=== PATIENT | female | born 1950 | race Caucasian/White ===

== ENCOUNTER 2024-05-15 18:44 | Emergency (ER) | payer OTHER ==
[2024-05-15 18:51] VITALS: RESP 18
[2024-05-15] MEDS: ACETAMINOPHEN TAB 500 MG TAB PO STA (20:33)
[2024-05-15] MEDS: LIDOCAINE 2%-EPI 1:100,000 20 ML VIAL SQ STA (20:34)
--- NOTE | 2024-05-15 20:58 | XR ---
EXAMINATION TYPE: XR wrist complete LT DATE OF EXAM: 05/15/2024 8:21 PM CLINICAL INDICATION:Female, 74 years old with history of s/p fall left wrist pain; [facility] COMPARISON: None TECHNIQUE: XR wrist complete LT; examined in the Frontal, navicular, lateral, and oblique. FINDINGS/IMPRESSION: * Subtle cortical irregularity along the distal radius articular surface. Consider further evaluatio n with CT for confirmation of nondisplaced fracture. * Multifocal degeneration changes of the joints of the wrist.
--- NOTE | 2024-05-15 21:04 | CT ---
EXAMINATION TYPE: CT brain cspine wo con CT DLP: 1338.1 mGycm, Automated exposure control for dose reduction was used. DATE OF EXAM: 05/15/2024 8:45 PM COMPARISON: None. CLINICAL INDICATION:Female, 74 years old with history of s/p fall hea dinjury; fall; laceration super ior to left eye TECHNIQUE: Brain: Multiple axial CT images of the brain were obtained without IV contrast. Cspine: Axial CT images from the skull base to the inferior aspect of T2 we obtained without intraven ous contrast. Coronal and sagittal reformatted images were also reviewed. . FINDINGS: Brain: Extra-axial spaces: No abnormal extra-axial fluid collections. Extra-axial partially calcified lesion likely representing a meningioma measuring 16 mm along the left parietal bone Ventricular system: Dilatation in proportion to cerebral atrophy. Cerebral parenchyma: Cerebral atrophy. No acute intraparenchymal hemorrhage or mass effect. The hutton -white junction is well differentiated. Scattered hypoattenuating areas are seen within the white mat ter. Cerebellum: Unremarkable. Mass effect: No evidence of midline shift. Intracranial vasculature: Atherosclerotic calcifications of the intracranial vessels. Soft tissues: Left periorbital region laceration with mild subcutaneous changes edema. Calvarium/osseous structures: No depressed skull fracture. Paranasal sinuses and mastoid air cells: Clear. Visualized orbits: Orbital contents are intact. Cervical spine: Fracture: None. Osseous structures: Multilevel degenerative disc disease changes with endplate spurring and disc oste ophyte complex's. Vertebral alignment: Straightening of the vertebral alignment. Spinal canal/Neural Foramina: No evidence of significant spinal canal narrowing. No evidence for sign ificant neural foraminal stenosis. Neck soft tissues: Prevertebral soft tissues are within normal limits. Other: The airway is patent. The lung apices are clear. IMPRESSION: 1. No acute intracranial process. 2. Left periorbital region laceration with mild subcutaneous changes edema. No evidence of fracture. 3. No evidence of cervical spine fracture. 4. Moderate multilevel degenerative disc disease. 5. Left lateral breast calcified extra-axial lesion favored represent a meningioma.
--- NOTE | 2024-05-15 22:44 | ED ---
Fall HPI - General Chief Complaint: Fall Stated Complaint: fall L side Time Seen by Provider: 05/15/24 19:16 Source: patient, RN notes reviewed Mode of arrival: ambulatory - History of Present Illness Initial Comments: 74-year-old female presenting to the ED with a chief complaint of fall. Patient reports that she missed a step causing her to fall forward. Patient reports she missed a step causing her to fall on the back porch. Fell forward and was able to catch herself with her left hand however notes that she did hit her head on the cement. There is no LOC. Denies blood thinner use. Now notes swelling of the left wrist and laceration above the left eye. Did note she did also land on her knee however denies injury of her knee. Has been ambulatory since. Patient reports her tetanus status is up-to-date. No preceding chest pain shortness of breath or dizziness prior to the fall. No other complaints at this time. - Related Data Allergies Allergy/AdvReac Type Severity Reaction Status Date / Time Sulfa (Sulfonamide AdvReac Rash/Hives Verified 05/15/24 18:51 Antibiotics) Review of Systems ROS Statement: Those systems with pertinent positive or pertinent negative responses have been documented in the HPI. ROS Other: All systems not noted in ROS Statement are negative. Past Medical History Past Medical History: No Reported History Smoking Status: Never smoker Past Alcohol Use History: None Reported Past Drug Use History: None Reported General Exam Limitations: no limitations General appearance: alert, in no apparent distress Head exam: Present: other (Approximately 3 and half centimeter laceration over the left eyebrow.) Neck exam: Present: normal inspection Respiratory exam: Present: normal lung sounds bilaterally Cardiovascular Exam: Present: regular rate GI/Abdominal exam: Present: soft, normal bowel sounds. Absent: distended, tenderness, guarding, rebound, rigid External exam: Present: other (Left distal forearm shows soft tissue swelling. Strength and sensation at the hand intact. No snuffbox tenderness to palpation. Radial pulses intact.) Extremities exam: Present: other (No midline spinal tenderness to palpation.) Back exam: Present: other (No midline spinal tenderness to palpation.) Neurological exam: Present: alert, oriented X3 Course Vital Signs 05/15/24 18:47 Temperature 98.3 F Pulse Rate 87 Respiratory 18 Rate Blood Pressure 196/82 O2 Sat by Pulse 97 Oximetry Medical Decision Making - Medical Decision Making Was pt. sent in by a medical professional or institution (LASHAWN Dawn, [employer]INE [employer]EDER, urgent care, hospital, or correction...) When possible be specific @ -No Did you speak to anyone other than the patient for history (EMS, parent, family, police, friend...)? What history was obtained from this source @ -No Did you review nursing and triage notes (agree or disagree)? Why? @ -I reviewed and agree with nursing and triage notes Were old charts reviewed (outside hosp., previous admission, EMS record, old EKG, old radiological studies, urgent care reports/EKG's, correction records)? Report findings @ -No old charts were reviewed Differential Diagnosis (chest pain, altered mental status, abdominal pain women, abdominal pain men, vaginal bleeding, weakness, fever, dyspnea, syncope, headache, dizziness, GI bleed, back pain, seizure, CVA, palpatations, mental hea lth, musculoskeletal)? @ -Differential Musculoskeletal Muscular strain, contusion, ligament sprain, fracture, arthritis, septic arthritis, bursitis, cellulitis, muscle spasm, nerve compression, DVT, arterial occlusion, herpes zoster, electrolyte abnormality, tumor.... This is not meant to be in all inclusive list EKG interpreted by me (3pts min.). @ -None X-rays interpreted by me (1pt min.). @ -X-ray interpreted me showing subtle cortical irregularity along the distal radius articular surface. CT interpreted by me (1pt min.). @ -CT brain and cervical spine interpreted me which revealed no evidence of acute finding. U/S interpreted by me (1pt. min.). @ -None done What testing was considered but not performed or refused? (CT, X-rays, U/S, labs)? Why? @ -Patient was to have a left knee x-ray as she also reports that she landed onto her left knee however she declined this while in x-ray. What meds were considered but not given or refused? Why? @ -None Did you discuss the management of the patient with other professionals (professionals i.e. LASHAWN Dawn, [employer]INE [employer]EDER, lab, RT, psych nurse, social media marketing specialist, brick cleaner, teacher, recreation officer, manager rn case)? Give summary @ -No Was smoking cessation discussed for >3mins.? @ -No Was critical care preformed (if so, how long)? @ -No Were there social determinants of health that impacted care today? How? (Homelessness, low income, unemployed, alcoholism, drug addiction, transportation, low edu. Level, literacy, decrease access to med. care, shelter, rehab)? @ -No Was there de-escalation of care discussed even if they declined (Discuss DNR or withdrawal of care, Hospice)? DNR status @ -No What co-morbidities impacted this encounter? (DM, HTN, Smoking, COPD, CAD, Cancer, CVA, ARF, Chemo, Hep., AIDS, mental health diagnosis, sleep apnea, morbid obesity)? @ -None Was patient admitted / discharged? Hospital course, mention meds given and rout e, prescriptions, significant lab abnormalities, going to OR and other pertinent info. @ -Discharge 74-year-old female presenting status post mechanical fall with fall onto outstretched left hand with head injury. Notes pain of her left wrist and laceration above her eyebrow. No other injuries at this time. Has been ambulatory since. Imaging of the brain and cervical spine revealed no evidence of acute process. X-ray did show possible fracture of the left distal radius. Patient was placed in a splint. Laceration was repaired. Tetanus status is up-to-date. Discharged home in stable condition. Patient is from [place] reports that she will be leaving soon. States that she will follow-up with orthopedist there. Patient provided disc. Discharged home in stable condition. Discussed return precautions with patient who verbalized agreement. Undiagnosed new problem with uncertain prognosis? @ -No Drug Therapy requiring intensive monitoring for toxicity (Heparin, Nitro, Insulin, Cardizem)? @ -No Were any procedures done? @ -Yes, splint placement laceration repair Diagnosis/symptom? @ -Status post mechanical fall Acute, or Chronic, or Acute on Chronic? @ -Acute Uncomplicated (without systemic symptoms) or Complicated (systemic symptoms)? @ -Uncomplicated Side effects of treatment? @ -No Exacerbation, Progression, or Severe Exacerbation? @ -No Poses a threat to life or bodily function? How? (Chest pain, USA, MA, pneumonia, PE, COPD, DKA, ARF, appy, cholecystitis, CVA, Diverticulitis, Homicidal, Suicidal, threat to staff... and all critical care pts) @ -No Disposition Clinical Impression: Fall, Wrist fracture Disposition: HOME SELF-CARE Condition: Good Instructions (If sedation given, give patient instructions): Fall Prevention for Older Adults (ED), Wrist Fracture in Adults (ED), Care For Your Stitches (ED) Additional Instructions: Please return to the Emergency Department if symptoms worsen or any other concerns. Please return in 3 to 5 days for suture removal. Follow-up with your orthopedist in [place]. Is patient prescribed a controlled substance at d/c from ED?: No Referrals: None,Stated [Primary Care Provider] - 1-2 days Time of Disposition: 22:55
[2024-05-15] MEDS: IBUPROFEN 600 MG STARTER PACK 4 TAB BTL PO STA (23:06)
[2024-05-15] MEDS: BACITRACIN OINT 1 EACH PACKET TOPICAL ONE (23:07)
[2024-05-15 23:14] VITALS: BP 161/78; PULSE 80; TEMP 98.1
== END 2024-05-15 23:23 | disposition home or self-care (01) ==
LOC: EC 18:44
DX: S62.102A Fracture of unspecified carpal bone, left wrist, initial encounter for closed fracture (principal); Z88.2 Allergy status to sulfonamides; W18.09XA Striking against other object with subsequent fall, initial encounter
CPT/HCPCS: 12011; 70450; 72125; 99284